=== PATIENT | male | born 1965 | race Caucasian/White ===

== ENCOUNTER → 2017-03-11 | Outpatient (CLI) | payer OTHER ==
--- NOTE | 2017-03-12 07:28 | XR ---
AP pelvis HISTORY: Melena, pelvic joint pain Single frontal view of the pelvis, no comparisons Some hypertrophic change present at the acetabular. Alignment, bone mineralization, joint spaces are maintained. Injection granuloma suspected in the left gluteal region. No fracture or dislocation evid ent. IMPRESSION: Correlate for possible femoral acetabular impingement
== END | disposition home or self-care (01) ==
LOC: RADXRMAIN 17:05
PROVIDERS: ATTEND Family Medicine
DX: M25.559 Pain in unspecified hip (principal); K92.1 Melena
CPT/HCPCS: 72170

== ENCOUNTER 2018-10-05 12:20 | Inpatient (IN) | payer OTHER ==
[2018-10-05] MEDS ORDERED: LIDOCAINE 1% INJ 10MG/ML (20 ML MDV) ONE (13:15)
[2018-10-05] MEDS ORDERED: fentaNYL (PF) 50 MCG/ML 2 ML AMP ONE (13:15)
[2018-10-05] MEDS ORDERED: VERAPAMIL 2.5 MG/ML 2 ML AMP ONE (13:29)
[2018-10-05] MEDS ORDERED: HEPARIN SODIUM 1,000 UN/ML (10ML VL) ONE (13:29)
[2018-10-05] MEDS ORDERED: ASPIRIN 81 MG ONE (13:34)
[2018-10-05] MEDS ORDERED: CLOPIDOGREL 75 MG TAB ONE (13:34)
[2018-10-05] MEDS ORDERED: VERAPAMIL SYRINGE (5 MG/10 ML) INTRAARTER ONE (13:35)
[2018-10-05] MEDS ORDERED: fentaNYL (PF) 50 MCG/ML 2 ML AMP IVP ONE (13:35)
[2018-10-05] MEDS ORDERED: ASPIRIN 81 MG PO ONE (13:35)
[2018-10-05] MEDS ORDERED: CLOPIDOGREL 75 MG TAB PO ONE (13:35)
[2018-10-05] MEDS ORDERED: MIDAZOLAM (PF) 2 MG/2 ML VIAL IVP ONE (13:35)
[2018-10-05] MEDS ORDERED: BIVALIRUDIN 250 MG in SODIUM CHLORIDE 0.9% 50 ML IV ONE (13:37)
[2018-10-05] MEDS ORDERED: IV FLUID CONTINUATION 1,000 ML IV ONE (13:37)
[2018-10-05] MEDS ORDERED: BIVALIRUDIN BOLUS 250 MG/50 ML IV ONE (13:37)
[2018-10-05] MEDS ORDERED: NITROGLYCERIN 1000MCG/10ML SYRINGE INTRACORON ONE (13:54)
[2018-10-05] MEDS ORDERED: IOPAMIDOL-370 125ML BTL INJ ONE (14:04)
[2018-10-05] MEDS ORDERED: MAG HYDROX/AL HYDROX/SIMETH 30 ML CUP PO PRN (14:14)
[2018-10-05] MEDS ORDERED: ATROPINE SULFATE 0.1 MG/ML 10ML SYRINGE IV PRN (14:14)
[2018-10-05] MEDS ORDERED: ZOLPIDEM 5 MG TAB PO PRN (14:14)
[2018-10-05] MEDS ORDERED: RX INFO: IV CONTRAST WAS GIVEN 1 EACH MISC MISCELLANE PRN (14:14)
[2018-10-05] MEDS ORDERED: NITROGLYCERIN SL TABS 0.4 MG TAB SUBLINGUAL PRN (14:14)
[2018-10-05] MEDS ORDERED: SODIUM CHLORIDE 0.9% 1,000 ML IV SCH (14:15)
--- NOTE | 2018-10-05 16:08 | PTCA ---
PERCUTANEOUSTRANS CORORONARY ANGIOGRAPHY Mr. Adame is a 53-year-old male known history of diabetes who presented to [facility] with symptoms of chest pain and non ST-segment elevation myocardial infarction, underwent cardiac catheterization by Dr. Deal and was found to have critical stenosis involving the proximal dominant left circumflex. In view of that, recommendation was regarding angioplasty and stenting. The procedure as well as risks and complications were discussed with the patient who is in full understanding and agreement. DESCRIPTION OF PROCEDURE: Using a guidewire exchange technique, the 6-Australian sheath in the right radial artery was exchanged to a new 6-Australian sheath. Following that, attempt to cannulate the left main using a 6-Australian FL 3.5 guiding catheter were unsuccessful. That catheter was removed and a 6-Australian LBU 3.5 guiding catheter was introduced into the system. After cannulating the left main a 0.014 balanced medium weight J-wire was advanced across the lesion and positioned in the distal left circumflex. Following that, a 2.5 x 12 mm Trek balloon was advanced and one inflation at 8 atmospheres was done. Following that, the balloon was removed and a 3.5 x 15 mm Xience Meaghan stent was deployed, it was dilated at 16 atmospheres. Following that, the balloon was removed and a 4.0 x 12 mm NC Trek balloon was advanced and one inflation at 12 atmospheres was done. Following that, catheter and sheaths were removed. Hemostasis was obtained with deployment of a TR band. There was no immediate complication patient is returned to his room in stable condition. Of note, the patient received Angiomax per protocol as well as oral loading dose of clopidogrel. He had no chest discomfort or significant EKG changes with the inflation. RESULTS: Successful stenting of the proximal left circumflex with reduction of stenosis from 99% to 0%. RECOMMENDATION: Patient be continued on aspirin, Plavix, beta blockers and statin. The importance of dual antiplatelet treatment were discussed with the patient and his family and they are in full understanding and agreement. Duration of procedure is 34 minutes. MMANDERL / DENISEN: [id number] /
[2018-10-05] MEDS: ATORVASTATIN 80 MG TAB PO SCH (20:07)
[2018-10-05] MEDS: METOPROLOL TARTRATE 25 MG TAB PO SCH (20:07)
[2018-10-05 20:51] LABS: Glucose,Whole Blood 273 mg/dL (75-99)
[2018-10-05] MEDS: INSULIN ASPART (NovoLOG) 100 UNIT/ML VIAL SQ SCH (23:03)
[2018-10-06 05:17] LABS: Glucose,Whole Blood 186 mg/dL (75-99)
[2018-10-06] MEDS: INSULIN ASPART (NovoLOG) 100 UNIT/ML VIAL SQ SCH ×4 (06:58→21:32)
[2018-10-06 07:15] LABS: Anion Gap 7 mmol/L; Blood Urea Nitrogen 11 mg/dL (9-20); Calcium 8.9 mg/dL (8.4-10.2); Carbon Dioxide 26 mmol/L (22-30); Chloride 105 mmol/L (98-107); Glucose 167 mg/dL (74-99); Potassium 4.2 mmol/L (3.5-5.1); Sodium 138 mmol/L (137-145)
[2018-10-06] MEDS ORDERED: INSULIN ASPART (NovoLOG) 100 UNIT/ML VIAL SQ SCH (07:30)
--- NOTE | 2018-10-06 08:34 | P.PN ---
Subjective Progress Note Date: 10/06/18 Principal diagnosis: Non-STEMI This is a pleasant 53-year-old gentleman who presented to [facility] with a chest discomfort and ruled in for acute non-ST patient myocardial infarction. He underwent heart catheterization over there and that revealed severe disease involving the left circumflex coronary artery. Subsequently the patient was transferred to [facility] where he underwent stenting of the left circumflex by Dr. Perry. On follow-up with him today, he is asymptomatic from the cardiovascular standpoint overview. Procedure was performed from the right radial approach. He still have tenderness over the right radial artery that I can feel good pulse. He continues to be on dual antiplatelet therapy along with statin. The patient possibly can be discharged home in the next 24 hours. Objective - Vital Signs Vital signs: Vital Signs Temp 97.0 F L 10/06/18 04:00 Pulse 80 10/06/18 04:00 Resp 17 10/06/18 04:00 BP 123/76 10/06/18 04:00 Pulse Ox 97 10/06/18 04:00 Intake & Output 10/05/18 10/06/18 10/06/18 18:59 06:59 18:59 Intake Total 218 1180 240 Balance 218 1180 240 Weight 0 g 81.2 kg Intake: IV 93 30 Invasive Line 1 30 Intake, IV Titration 1150 Amount Sodium Chloride 0.9% 1, 1150 000 ml @ 100 mls/hr IV . Q10H [facility] Rx#:[id number] Oral 125 240 Other: Voiding Method Toilet # Voids 0 2 # Bowel Movements 0 - Constitutional General appearance: Present: no acute distress - Respiratory Respiratory: bilateral: CTA - Cardiovascular Rhythm: regular Heart sounds: normal: S1, S2 - Labs CBC & Chem 7: 10/06/18 06:43 Labs: Abnormal Lab Results - Last 24 Hours (Table) 10/05/18 10/06/18 10/06/18 Range/Units 20:49 05:15 06:43 Creatinine 0.63 L (0.66-1.25) mg/dL Glucose 167 H (74-99) mg/dL POC Glucose (mg/dL) 273 H 186 H (75-99) mg/dL Assessment and Plan Assessment: Assessment #1 acute non-ST patient myocardial infarction #2 status post stenting of the left circumflex Plan #1 continue the current medical regimen #2 the patient possibly can be discharged home in the next 24 hours
[2018-10-06] MEDS: CLOPIDOGREL 75 MG TAB PO SCH (08:46)
[2018-10-06] MEDS: LISINOPRIL 5 MG TAB PO SCH (08:47)
[2018-10-06] MEDS: ASPIRIN 81 MG PO SCH (08:47)
[2018-10-06] MEDS: METOPROLOL TARTRATE 25 MG TAB PO SCH ×2 (08:48→20:46)
[2018-10-06 11:44] LABS: Glucose,Whole Blood 300 mg/dL (75-99)
[2018-10-06 12:41] LABS: Hemoglobin A1C 10.9 % (4.0-6.0)
[2018-10-06 14:53] VITALS: BMI 29.7
[2018-10-06 16:50] LABS: Glucose,Whole Blood 188 mg/dL (75-99)
[2018-10-06] MEDS: ATORVASTATIN 80 MG TAB PO SCH (20:46)
[2018-10-06 20:55] LABS: Glucose,Whole Blood 226 mg/dL (75-99)
--- NOTE | 2018-10-06 22:10 | HP ---
HISTORY AND PHYSICAL This is a 53-year-old white male who was admitted to the hospital with acute coronary artery disease. 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 He has uncontrolled diabetes mellitus. Discussed home medications for diabetes. His circumflex is status post PTCA. He feels much better at this time. Vital signs are stable. Afebrile. Fourteen-point review of systems negative except for mentioned in HPI. Successful stenting has been done today. Vital signs stable. Afebrile. CARDIOVASCULAR: S1, S2. LUNGS: Transmitted upper airway sounds. GI: Soft. HEMATOLOGY: Negative Homans. VASCULAR: Normal dorsalis pedis, posterior tibial, radial pulse. OPHTHALMOLOGIC: Pupils equal, round, reactive to light and accommodation. ASSESSMENT: 1. Status post percutaneous transluminal coronary angioplasty. 2. Uncontrolled diabetes mellitus. Medications reviewed. Possible discharge home in the morning after PTCA. MMODL / IJN: [id number] /
[2018-10-07 06:19] LABS: Glucose,Whole Blood 238 mg/dL (75-99)
[2018-10-07] MEDS: INSULIN ASPART (NovoLOG) 100 UNIT/ML VIAL SQ SCH ×2 (06:59→12:18)
[2018-10-07] MEDS: ASPIRIN 81 MG PO SCH (09:21)
[2018-10-07] MEDS: METOPROLOL TARTRATE 25 MG TAB PO SCH (09:21)
[2018-10-07] MEDS: CLOPIDOGREL 75 MG TAB PO SCH (09:21)
[2018-10-07] MEDS: LISINOPRIL 5 MG TAB PO SCH (09:21)
--- NOTE | 2018-10-07 09:29 | CDI ---
Documentation Clarification Form Date: 10/07/2018 9:17:25 AM From: Dipti AdameSISSY, CCDS Admit Date: 10/05/2018 2:14:00 PM Patient Name: Arya Adame Visit Number: [id number] Discharge Date: ATTENTION: The Clinical Documentation Specialists (CDI) and [facility] Coding Staff appreciate your assistance in clarifying documentation. Please respond to the clarification below the line at the bottom and electronically sign. The CDI & [facility] Coding staff will review the response and follow-up if needed. Please note: Queries are made part of the Legal Health Record. If you have any questions, please contact the author of this message via ITS. Dr. Derrick Arnold: Per the 10/06 progress note: "uncontrolled diabetes mellitus". History/Risk Factors: Diabetes Mellitus Clinical Indicators: Patient presented to [facility] with chest pain, diagnosed with a NSTEMI, transferred to [facility] for PTCA. LABS: 273^ - 186 - 300^ - 188^ - 226^ - 238^ Treatment: Left heart catheterization: critical stenosis, underwent PTCA w/ZAIDA stent to proximal left circumflex artery. IV Heparin, Aspirin, Plavix, IV Atropine, Nitro sl, IV fluid 100, Insulin sq: Novolog. In order to capture the severity of Illness and necessary documentation specificity, please clarify: DM Type 2 o With Hyperglycemia o Without Hyperglycemia Other, please specify Unable to Determine (Last Revision: March 2017) MTDD
[2018-10-07 11:59] LABS: Glucose,Whole Blood 215 mg/dL (75-99)
--- NOTE | 2018-10-07 12:58 | P.PN ---
Subjective Progress Note Date: 10/07/18 This is a pleasant 53-year-old gentleman who presented to [facility] with chest discomfort and ruled in for non-ST elevation myocardial infarction. He underwent a cardiac catheterization there that revealed severe disease involving the circumflex artery. Subsequently the patient was transferred to [facility] where he underwent stenting of the circumflex by Dr. Perry. Patient was seen and examined this morning, denied any chest discomfort and is breathing overall is stable. Hemodynamically he is also stable. 112/68, heart rate in the 70s. Objective - Vital Signs Vital signs: Vital Signs Temp 97.2 F L 10/07/18 04:00 Pulse 73 10/07/18 10:18 Resp 17 10/07/18 04:00 BP 113/69 10/07/18 10:18 Pulse Ox 98 10/07/18 10:18 Intake & Output 10/06/18 10/07/18 10/07/18 18:59 06:59 18:59 Intake Total 720 960 180 Balance 720 960 180 Weight 81.2 kg 81.1 kg Intake: Oral 720 960 180 Other: Voiding Method Toilet # Voids 2 2 0 # Bowel Movements 0 - Exam PHYSICAL EXAMINATION: GENERAL: This is a 53-year-old gentleman in no acute distress at the time of my examination HEENT: Head is atraumatic, normocephalic. Pupils equal, round. Sclera anicteric. Conjunctiva are clear. Mucous membranes of the mouth are moist. Neck is supple. There is no elevated jugular venous pressure. no carotid bruit is heard. HEART EXAMINATION: [Heart S1, S2 normal. No murmur or gallop heard.] CHEST EXAMINATION:[ Lungs are clear to auscultation and precussion. No chest wall tenderness is noted on palpation or with deep breathing.] ABDOMEN: [ Soft, nontender. Bowel sounds are heard. No organomegaly noted]. EXTREMITIES:[ 2+ peripheral pulses with no evidence of peripheral edema and no calf tenderness noted]. NEUROLOGIC [patient is awake, alert and oriented X3.] . - Labs CBC & Chem 7: 10/06/18 06:43 Labs: Abnormal Lab Results - Last 24 Hours (Table) 10/06/18 10/06/18 10/07/18 Range/Units 16:47 20:54 06:18 POC Glucose (mg/dL) 188 H 226 H 238 H (75-99) mg/dL 10/07/18 Range/Units 11:58 POC Glucose (mg/dL) 215 H (75-99) mg/dL Assessment and Plan Plan: Assessment and plan #1 acute non-ST elevation myocardial infarction status post angioplasty and stenting of the circumflex artery #2 diabetes #3 hyperlipidemia #4 hypertension Plan Patient may be discharged home today from cardiology's perspective. Follow-up appointment will be made in the office post discharge. Patient will be discharged home on aspirin 81 mg daily, Lipitor 80 mg daily, Plavix 75 mg daily, lisinopril 5 mg daily, metoprolol 25 mg one tablet by mouth twice a day and sublingual nitroglycerin as needed for chest pain. DNP note has been reviewed, I agree with a documented findings and plan of care. Patient was seen and examined.
[2018-10-07 13:12] VITALS: BP 106/66; PULSE 68; RESP 16; TEMP 98.1
--- NOTE | 2018-10-08 08:40 | DS ---
DISCHARGE SUMMARY ADDENDUM: Uncontrolled diabetes mellitus with hyperglycemia. MMODL / IJN: [id number] /
--- NOTE | 2018-10-08 13:11 | P.DS ---
Providers Date of admission: 10/05/18 14:14 Expected date of discharge: 10/07/18 Attending physician: Derrick Arnold Consults: 10/05/18 14:15 Consult Physician Routine Consulting Provider: [facility] Consult Reason/Comments: Post Interventional patient Do you want consulting provider notified?: Already Contacted Placement Type Exists?: Yes Primary care physician: James Deal Hospital Course: Final Diagnoses: #1 acute non-ST elevation myocardial infarction status post angioplasty and stenting of the circumflex artery #2 diabetes #3 hyperlipidemia #4 hypertension Hospital course:This is a pleasant 53-year-old gentleman who presented to [facility] with chest discomfort and ruled in for non-ST elevation myocardial infarction. He underwent a cardiac catheterization there that revealed severe disease involving the circumflex artery. Subsequently the patient was transferred to [facility] where he underwent stenting of the circumflex by Dr. Perry. Patient was seen and examined this morning, denied any chest discomfort and is breathing overall is stable. Hemodynamically he is also stable. 112/68, heart rate in the 70s. Significant clinical improvement, cleared by cardiology for discharge. Hemoglobin A1c 10.9; states difficulty with taking medication twice daily secondary to his work schedule. Jardiance 25 mg daily prescribed, coupon given. Significant clinical improvement. Patient is being discharged home in a stable condition with guarded prognosis. The impression and plan of care has been dictated as directed. : I performed a history and examination of this patient, discussed the same with the dictator. I agree with the dictator's note ,documented as a scribe. Any additional findings or plans will be noted. Time taken: 35 minutes Patient Condition at Discharge: Stable Plan - Discharge Summary New Discharge Prescriptions: New Aspirin 81 mg PO DAILY #30 chew Atorvastatin [Lipitor] 80 mg PO HS #30 tab Metoprolol Tartrate [Lopressor] 25 mg PO BID #60 tab Nitroglycerin Sl Tabs [Nitrostat] 0.4 mg SUBLINGUAL Q5M PRN #25 tab PRN Reason: Chest Pain Clopidogrel [Plavix] 75 mg PO DAILY #30 tab Lisinopril [Zestril] 5 mg PO DAILY #30 tab Empagliflozin [Jardiance] 25 mg PO DAILY #30 tablet Discontinued metFORMIN HCL 1,000 mg PO BID Discharge Medication List Aspirin 81 mg PO DAILY #30 chew 10/07/18 [Rx] Atorvastatin [Lipitor] 80 mg PO HS #30 tab 10/07/18 [Rx] Clopidogrel [Plavix] 75 mg PO DAILY #30 tab 10/07/18 [Rx] Empagliflozin [Jardiance] 25 mg PO DAILY #30 tablet 10/07/18 [Rx] Lisinopril [Zestril] 5 mg PO DAILY #30 tab 10/07/18 [Rx] Metoprolol Tartrate [Lopressor] 25 mg PO BID #60 tab 10/07/18 [Rx] Nitroglycerin Sl Tabs [Nitrostat] 0.4 mg SUBLINGUAL Q5M PRN #25 tab 10/07/18 [Rx] Follow up Appointment(s)/Referral(s): Salty Perry MD [STAFF PHYSICIAN] - 10/12/18 10:15 am Derrick Arnold MD [STAFF PHYSICIAN] - 1 Week (Please call the office for your follow up appointment) Ambulatory/Diagnostic Orders: Complete Blood Count w/diff [LAB.AMB] Time Frame: 3 Days, Location: None Selected Patient Instructions/Handouts: Heart Healthy Diet (DC), After Radial Heart Catheterization (GEN) Activity/Diet/Wound Care/Special Instructions: Glucometer to be arranged by case finishing machine adjuster. Maintain log of accuchecks TID, take to PCP for further rec. DIET: Cardiac/COnsist. Carb OP DM classes Discharge Disposition: TRANSFER TO SNF/ECF
== END 2018-10-07 16:34 | disposition home or self-care (01) | DRG 247 ==
LOC: 3SCARD 14:14
PROVIDERS: ADMIT Family Medicine; ATTEND Family Medicine
DX: I21.4 Non-ST elevation (NSTEMI) myocardial infarction (principal); I25.10 Atherosclerotic heart disease of native coronary artery without angina pectoris; E11.65 Type 2 diabetes mellitus with hyperglycemia; E78.5 Hyperlipidemia, unspecified; I10 Essential (primary) hypertension; Z79.84 Long term (current) use of oral hypoglycemic drugs
CPT/HCPCS: 80048; 83036; 85347; C1874

== ENCOUNTER → 2018-10-10 | Outpatient (CLI) | payer OTHER ==
[2018-10-10 11:53] LABS: Basophils # (A) 0.1 k/uL (0-0.2); Basophils % (A) 0 %; Eosinophils # (A) 0.1 k/uL (0-0.7); Eosinophils % (A) 1 %; HCT 46.6 % (39.0-53.0); HGB 15.7 gm/dL (13.0-17.5); Lymphocytes # (A) 1.8 k/uL (1.0-4.8); Lymphocytes % (A) 15 %; MCH 32.3 pg (25.0-35.0); MCHC 33.8 g/dL (31.0-37.0); MCV 95.6 fL (80.0-100.0); Mean Platelet Volume 6.9; Monocytes # (A) 0.4 k/uL (0-1.0); Monocytes % (A) 4 %; Neutrophils # (A) 9.2 k/uL (1.3-7.7); Neutrophils % (A) 79 %; Platelet Count 427 k/uL (150-450); RBC 4.87 m/uL (4.30-5.90); RDW 13.3 % (11.5-15.5); WBC 11.7 k/uL (3.8-10.6)
[2018-10-10 16:50] LABS: Anion Gap 13.1 mmol/L (4.00-12.00); Calcium 9.3 mg/dL (8.7-10.3); Carbon Dioxide 26.9 mmol/L (21.6-31.8); Potassium 4.3 mmol/L (3.5-5.5)
== END | disposition home or self-care (01) ==
LOC: LABWHC1 11:07
PROVIDERS: ATTEND Nurse Practitioner
DX: R73.9 Hyperglycemia, unspecified (principal); I21.4 Non-ST elevation (NSTEMI) myocardial infarction
CPT/HCPCS: 36415; 80048; 85025

== ENCOUNTER → 2019-01-14 | Outpatient (CLI) | payer OTHER ==
[2019-01-14 23:24] LABS: Albumin 4.7 g/dL (3.80-4.90); Albumin/Globulin Ratio 2.24 (1.60-3.17); Anion Gap 9.2 mmol/L (4.00-12.00); BUN/Creat Ratio 17.78 Ratio (12.00-20.00); Calcium 9.6 mg/dL (8.7-10.3); Carbon Dioxide 28.8 mmol/L (21.6-31.8); Globulin 2.1 g/dL (1.6-3.3); LDL Cholesterol,Calculated 40.8 mg/dL (0.0-131.0); Potassium 4.1 mmol/L (3.5-5.5); Total Bilirubin 1.2 mg/dL (0.3-1.2); Total Protein 6.8 g/dL (6.2-8.2); VLDL Calculation 21.2 mg/dL (5.00-40.00)
== END | disposition home or self-care (01) ==
LOC: LABWHC1 16:33
PROVIDERS: ATTEND Internal Medicine Interventional Cardiology
DX: E78.2 Mixed hyperlipidemia (principal)
CPT/HCPCS: 36415; 80053; 80061

== ENCOUNTER → 2020-09-01 | Outpatient (CLI) | payer OTHER ==
[2020-09-01 09:12] LABS: African American GFR (CKD) >90 (>60 ml/min/1.73 sqM); Blood Urea Nitrogen 14 mg/dL (9-20); Non-African American GFR(CKD) 86 (>60 ml/min/1.73 sqM)
--- NOTE | 2020-09-01 09:49 | CT ---
EXAMINATION TYPE: CT chest w con DATE OF EXAM: 09/01/2020 COMPARISON: None HISTORY: Cough CT DLP: 423.50 mGycm Automated exposure control for dose reduction was used. CONTRAST: CT scan of the chest is performed with IV Contrast, patient injected with 100 ml mL of Isovue 300. FINDINGS: LUNGS: The lungs are grossly clear, there is no concerning parenchymal mass or nodule identified. T here is no pleural effusion or pneumothorax seen. The tracheobronchial tree is patent. MEDIASTINUM: There are no greater than 1 cm hilar or mediastinal lymph nodes. No pericardial effusi on is seen. Thoracic aorta is of normal caliber. The heart is not enlarged. UPPER ABDOMEN: Hepatic steatosis noted. No evidence for hepatic lesion. Gallbladder is unremarkable. OTHER: No additional significant abnormality is seen. IMPRESSION: No significant abnormality to account for the patient's symptoms of coughing. Correlate clinically.
== END | disposition home or self-care (01) ==
LOC: RADCTMAIN 07:52
PROVIDERS: ATTEND Family Medicine
DX: R05 Cough (principal)
CPT/HCPCS: 82565; 84520; 71260; 36415; Q9967

== ENCOUNTER 2020-09-19 08:59 | Day surgery (SDC) | payer OTHER ==
[2020-09-14 14:04] VITALS: BMI 31.6
[~2020-09-19 08:59] MED LIST: LACTATED RINGERS 1,000 ML IV SCH; LIDOCAINE 1% (10MG/ML) FOR IV START INTRADERMA PRN
[2020-09-19 09:13] VITALS: TEMP 97.8
[2020-09-19 09:22] LABS: Glucose,Whole Blood 125 mg/dL (75-99)
[2020-09-19] MEDS ORDERED: PROPOFOL 10 MG/ML 20 ML VIAL IV ONE (10:07)
[2020-09-19] MEDS ORDERED: LIDOCAINE 1% INJ 10MG/ML (20 ML MDV) ONE (10:07)
--- NOTE | 2020-09-19 10:26 | P.PCN ---
Date of Procedure: 09/19/20 Description of Procedure: BRIEF HISTORY: Patient is a 55-year-old male presenting for outpatient esophagogastroduodenoscopy for evaluation of GERD. She reports symptoms of nighttime reflux occurring a few times a week. In addition he reports a dry cough. No prior PPI use. PROCEDURE PERFORMED: Esophagogastroduodenoscopy with biopsy. PREOPERATIVE DIAGNOSIS: GERD, heartburn, cough. ESTIMATED BLOOD LOSS: Minimal. IV sedation per anesthesia. PROCEDURE: After informed consent was obtained, the patient was brought into the endoscopy unit. IV sedation was administered by Anesthesia under continuous monitoring. Initially the Olympus GIF-190 video endoscope was inserted into the mouth. Esophagus intubated without any difficulty. It was gradually advanced into the stomach and duodenum and carefully examined. The bulb and the second part of the duodenum appeared normal, with biopsies taken. The scope at this time was withdrawn to the stomach, adequately insufflated with air, and upon careful examination, mucosa of the antrum, body, cardia and the fundus appeared normal, except for some mild punctate erythema as well as superficial erosions in the antrum and body suggestive of moderate gastritis with biopsies of the antrum and body taken. The scope was then withdrawn into the esophagus. The GE junction was located at 36 cm from the incisors and biopsied. The esophagus appeared normal. There were no erosions or ulcerations seen and the patient tolerated the pr ocedure well. IMPRESSION: 1. Moderate gastritis. 2. Biopsies of the duodenum, antrum body and GE junction. RECOMMENDATIONS: The findings of this examination were discussed with the patient and his family. Okay to resume diet. Okay to resume medications. Await pathology from biopsies. Patient was provided with a 2 month course of omeprazole 20 mg capsule daily.
[2020-09-19 10:44] VITALS: BP 122/76; PULSE 78; RESP 18
== END 2020-09-19 11:05 | disposition home or self-care (01) ==
LOC: ORWHC2ENDO 08:59
PROVIDERS: ATTEND Internal Medicine
DX: K21.00 Gastro-esophageal reflux disease with esophagitis, without bleeding (principal); K25.9 Gastric ulcer, unspecified as acute or chronic, without hemorrhage or perforation; K29.70 Gastritis, unspecified, without bleeding; I25.10 Atherosclerotic heart disease of native coronary artery without angina pectoris; I10 Essential (primary) hypertension; E78.5 Hyperlipidemia, unspecified; J45.909 Unspecified asthma, uncomplicated; E11.9 Type 2 diabetes mellitus without complications; K21.9 Gastro-esophageal reflux disease without esophagitis; Z79.84 Long term (current) use of oral hypoglycemic drugs; Z79.899 Other long term (current) drug therapy; Z90.89 Acquired absence of other organs; Z95.5 Presence of coronary angioplasty implant and graft; Z79.891 Long term (current) use of opiate analgesic
CPT/HCPCS: 88305; 43239; J2001; J2704

== ENCOUNTER 2023-08-25 08:48 | Day surgery (SDC) | payer OTHER ==
[~2023-08-25 08:48] MED LIST changes: -LACTATED RINGERS 1,000 ML IV SCH; +ONDANSETRON 4 MG/2 ML VIAL IVP PRN
[2023-08-25] MEDS: LACTATED RINGERS 1,000 ML IV SCH (09:25)
[2023-08-25 09:26] VITALS: RESP 16; TEMP 97.5
[2023-08-25 09:31] LABS: Glucose,Whole Blood 89 mg/dL (70-110)
[2023-08-25] MEDS ORDERED: fentaNYL (PF) 50 MCG/ML 2 ML AMP ONE (10:35)
[2023-08-25] MEDS ORDERED: LIDOCAINE 2% (PF) 20 MG/ML 5 ML VIAL ONE (10:35)
[2023-08-25] MEDS ORDERED: PROPOFOL 10 MG/ML 20 ML VIAL IV ONE (10:35)
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
--- NOTE | 2023-08-25 11:01 | P.OP ---
Date of Procedure: 08/25/23 Preoperative Diagnosis: Diarrhea GERD Postoperative Diagnosis: Antral gastritis Mild esophagitis Normal colon Procedure(s) Performed: EGD Colonoscopy Anesthesia: MAC Surgeon: Vinay Huber Pathology: other (Antrum, esophagus) Condition: stable Description of Procedure: The patient's placed on the endoscopy table in the lateral position. She received IV sedation. Gastroscope patient oropharynx passed in the esophagus and stomach. Scope was placed through the pylorus. The first and second portion of the duodenum appeared normal. The scope was brought back the antrum this mildly inflamed. A biopsies performed. Scope was then retroflexed remainder stomach appeared normal. The GE junction was at 40 cm per the distal esophagus appeared minimally inflamed. A biopsies performed. The proximal esophagus appeared normal. Scope withdrawn for patient. Next digital rectal exam was performed. This revealed no abnormalities. The flexible colonoscope was then placed patient anus and passed throughout the entire colon. The ileocecal valve was visualized. The cecum, ascending and transverse colon appeared normal. The descending and sigmoid colon appeared normal. Scope was brought back the rectum and this appeared normal. Due to this patient's symptoms of diarrhea a random rectal biopsies performed. The scope was withdrawn for patient.
[2023-08-25 12:49] LABS: Glucose,Whole Blood 73 mg/dL (70-110)
[2023-08-25 12:53] VITALS: BP 120/78; PULSE 85
[2023-08-25] MEDS: DEXTROSE 50% SYRINGE 50 ML IVP ONE (13:15)
[2023-08-25 13:49] LABS: Glucose,Whole Blood 118 mg/dL (70-110)
--- NOTE | 2023-08-25 17:15 | NM ---
EXAMINATION TYPE: NM hepatobiliary w CCK DATE OF EXAM: 08/25/2023 5:10 PM COMPARISON: None CLINICAL INDICATION:Male, 58 years old with history of Indigestion; TECHNIQUE: The patient was given 4.8 mCi of Technetium 99m-Mebrofenin as a radiotracer and multiple scintigraphic images were obtained of the abdomen. Gallbladder function was also assessed after the a dministration of ensure drink and additional scintigraphic images were obtained of the abdomen. A reg ion of interest was drawn over the gallbladder and a timing activity curve was generated. The gallbla dder ejection fraction was calculated. FINDINGS: Normal uptake of radiotracer was identified within the liver with excretion into the hepatic and comm on biliary ducts. There was normal progressive washout of the liver over the course of the study. Rad iotracer uptake within the gallbladder at 8 minutes as well as small bowel activity was identified . Maximum calculated gallbladder ejection fraction is: 19% at 30 minutes (Normal gallbladder ejection fraction is > 35%) IMPRESSION: 1. Normal hepatobiliary scan. 2. Impaired gallbladder emptying and gallbladder dysfunction.
== END 2023-08-25 14:40 | disposition home or self-care (01) ==
LOC: ORWHC2ENDO 08:48
PROVIDERS: ATTEND Surgery
DX: K29.50 Unspecified chronic gastritis without bleeding (principal); J45.909 Unspecified asthma, uncomplicated; M19.90 Unspecified osteoarthritis, unspecified site; I25.10 Atherosclerotic heart disease of native coronary artery without angina pectoris; E78.5 Hyperlipidemia, unspecified; K21.00 Gastro-esophageal reflux disease with esophagitis, without bleeding; R19.7 Diarrhea, unspecified; E11.9 Type 2 diabetes mellitus without complications; Z79.51 Long term (current) use of inhaled steroids; Z79.84 Long term (current) use of oral hypoglycemic drugs; Z90.49 Acquired absence of other specified parts of digestive tract; Z95.5 Presence of coronary angioplasty implant and graft
CPT/HCPCS: 88305; 78227; 45380; 43239; A9537; J2805; J3010; J2704; J2001